=== PATIENT | female | born 1990 | race Two or more races ===

== ENCOUNTER 2020-04-16 04:11 | Emergency (ER) | payer MEDICAID, OTHER ==
[~2020-04-16] VITALS: Ht 177.8 cm; Wt 86.9 kg
[~2020-04-16 04:11] MED LIST: DOCU-131 PO; IBUP-1222 PO; OXYC1TAB14 PO; PREN1TAB60 PO
--- NOTE | 2020-04-16 04:32 | NUR ---
"I'VE BEEN THROWING UP A LOT AT WORK AND HAVE ABD PAIN" LMP 04/06/20. VOMITING X8 SINCE 1999. BILAT LOW QUAD ABD PAIN
[2020-04-16] MEDS ORDERED: MORPHINE SULFATE 4 MG/ML, 1ML ONE (04:58)
[2020-04-16] MEDS ORDERED: ONDANSETRON 2MG/ML, 2ML ONE (04:58)
[2020-04-16] MEDS ORDERED: FAMOTIDINE 20 MG/2 ML ONE (04:59)
[2020-04-16] MEDS ORDERED: ONDANSETRON 2MG/ML, 2ML IVPush ONE (05:00)
[2020-04-16] MEDS ORDERED: SODIUM CHLORIDE 0.9% 1,000ML IVBOLUS ONE (05:00)
[2020-04-16] MEDS ORDERED: FAMOTIDINE 20 MG/2 ML IV ONE (05:00)
[2020-04-16] MEDS ORDERED: MORPHINE SULFATE 4 MG/ML, 1ML IVPush PRN (05:00)
--- NOTE | 2020-04-16 05:17 | NUR ---
PIV PLACED MEDICATED FOR PAIN
[2020-04-16 05:20] LABS: BASOPHILS % (AUTO) 0 % (0-1); EOSINOPHILS % (AUTO) 1 % (1-7); LYMPHOCYTES % (AUTO) 15 % (22-44); MD NO; MEAN CORPUSCULAR HEMOGLOBIN 27.3 pg (27.0-34.8); MEAN CORPUSCULAR HGB CONC 33.5 g/dL (32.4-35.8); MEAN PLATELET VOLUME 8.8 fL (7.4-10.4); MONOCYTES % (AUTO) 8 % (2-9); NEUTROPHILS % (AUTO) 76 % (42-75); PLATELET COUNT 254 x10^3/uL (130-400); RED BLOOD COUNT 4.59 x10^6/uL (3.82-5.3); RED CELL DISTRIBUTION WIDTH 13.9 % (9.6-15.2)
[2020-04-16 05:33] LABS: CHLORIDE 107 mmol/L (98-107)
[2020-04-16 05:54] LABS: ALANINE AMINOTRANSFERASE 18 U/L (12-78); ALBUMIN 3.1 g/dL (3.4-5.0); ALKALINE PHOSPHATASE 49 U/L (45-117); ANION GAP 10 mmol/L (5-15); BILIRUBIN,TOTAL 0.2 mg/dL (0.2-1.0); CALCIUM 8.2 mg/dL (8.5-10.1); CREATININE 0.74 mg/dL (0.55-1.02); TOTAL PROTEIN 7.1 g/dL (6.4-8.2)
[2020-04-16 06:34] LABS: MICROSCOPIC AUTO
--- NOTE | 2020-04-16 06:41 | NUR ---
US IN PROGRESS
--- NOTE | 2020-04-16 07:00 | NUR ---
assumed care of pt. report from Myra ALEXANDER pt here for N/V and abd pain. pt has had an incidental finding. pt has been medicated. US currently in progress at bedside
--- NOTE | 2020-04-16 07:05 | NUR ---
IV fluid infusion completed prior to assumed care
--- NOTE | 2020-04-16 07:13 | NUR ---
bedside US continues
--- NOTE | 2020-04-16 07:45 | NUR ---
pt sitting up in position of comfort. pt has no c/o at this time
[2020-04-16 08:33] VITALS: BP 105/57
== END 2020-04-16 08:38 | disposition home or self-care (01) ==
LOC: ED 06:29
DX: O23.12 Infections of bladder in pregnancy, second trimester (principal); O26.892 Other specified pregnancy related conditions, second trimester; R11.2 Nausea with vomiting, unspecified; Z3A.16 16 weeks gestation of pregnancy
CPT/HCPCS: 76700; 76801; 80053; 81001; 83690; 84702; 85025; 87086; 96374; 96375; 99285; J2270; J2405; J7030; 36415; 84703

== ENCOUNTER 2020-09-21 05:49 | Inpatient (IN) | payer OTHER ==
[~2020-09-21] VITALS: Ht 177.8 cm; Wt 110.9 kg
[2020-09-21] MEDS ORDERED: OXYTOCIN 30U/ 0.9% NaCL 500ML 500 ML ONE (06:20)
[2020-09-21] MEDS ORDERED: SODIUM CITRATE/CITRIC ACID 15 ML UDC ONE ×2 (06:20→12:09)
[2020-09-21] MEDS ORDERED: NEWBORN KIT ONE (06:20)
[2020-09-21] MEDS ORDERED: SODIUM CITRATE/CITRIC ACID 30 ML UDC PO ONE ×2 (06:30→15:30)
[2020-09-21] MEDS ORDERED: LACTATED RINGERS 1,000 ML IVBOLUS ONE (06:30)
[2020-09-21] MEDS ORDERED: METOCLOPRAMIDE 5 MG/ML, 2ML IV ONE (06:30)
[2020-09-21 06:45] LABS: BASOPHILS % (AUTO) 0 % (0-1); EOSINOPHILS % (AUTO) 1 % (1-7); LYMPHOCYTES % (AUTO) 14 % (22-44); MEAN CORPUSCULAR HEMOGLOBIN 25.7 pg (27.0-34.8); MEAN CORPUSCULAR HGB CONC 32.7 g/dL (32.4-35.8); MEAN PLATELET VOLUME 8.8 fL (7.4-10.4); MONOCYTES % (AUTO) 6 % (2-9); NEUTROPHILS % (AUTO) 78 % (42-75); PLATELET COUNT 234 x10^3/uL (130-400); RED BLOOD COUNT 3.93 x10^6/uL (3.82-5.3); RED CELL DISTRIBUTION WIDTH 14.2 % (9.6-15.2)
[2020-09-21] MEDS ORDERED: FENTANYL PF 100 MCG/2ML ONE ×3 (07:18→15:25)
[2020-09-21 07:19] VITALS: BP 111/71
[2020-09-21] MEDS ORDERED: OXYTOCIN 10 UNITS/ML, 1ML ONE ×4 (07:21)
[2020-09-21] MEDS ORDERED: CEFAZOLIN 1,000 MG ONE ×4 (07:21→12:20)
[2020-09-21] MEDS ORDERED: KETOROLAC 30 MG/1 ML ONE (07:21)
[2020-09-21] MEDS ORDERED: EPHEDRINE 50 MG/ML, 1ML ONE (08:21)
[2020-09-21] MEDS ORDERED: PHENYLEPHRINE 10 MG/ML ONE (08:26)
[2020-09-21] MEDS ORDERED: SIMETHICONE 80 MG CHEW TAB PO PRN (08:30)
[2020-09-21] MEDS ORDERED: METHYLERGONOVINE 0.2 MG/ML IM PRN (08:30)
[2020-09-21] MEDS ORDERED: CARBOPROST TROMETHAMINE 250 MCG/ML, 1ML IM PRN (08:30)
[2020-09-21] MEDS ORDERED: DIPH,PERTUSS(ACELL),TET VAC/PF NC IM-VACC PRN (08:30)
[2020-09-21] MEDS ORDERED: ONDANSETRON 2MG/ML, 2ML IV PRN (08:30)
[2020-09-21] MEDS ORDERED: morphine SULFATE 10 MG/ML, 1ML IM PRN (08:30)
[2020-09-21] MEDS ORDERED: MISOPROSTOL 200 MCG TABLET PR PRN (08:30)
[2020-09-21] MEDS ORDERED: ACETAMINOPHEN 325 MG TABLET PO PRN ×2 (08:30)
[2020-09-21] MEDS: PRENATAL VIT/IRON/FA 1 EACH TABLET PO SCH (09:00)
[2020-09-21] MEDS ORDERED: ONDANSETRON 2MG/ML, 2ML IVPush PRN ×2 (09:30→15:30)
[2020-09-21] MEDS ORDERED: DIPHENHYDRAMINE 50 MG/ML, 1ML IVPush PRN ×2 (09:30→15:30)
[2020-09-21] MEDS ORDERED: FENTANYL PF 100 MCG/2ML IV PRN ×2 (09:30→15:30)
[2020-09-21] MEDS ORDERED: OXYcodone 5 MG/5 ML ORAL.SOL UDC PO PRN ×2 (09:30→15:30)
[2020-09-21] MEDS ORDERED: EPHEDRINE 50 MG/ML, 1ML IVPush PRN ×2 (09:30→15:30)
[2020-09-21] MEDS ORDERED: morphine SULFATE 10 MG/ML, 1ML IVPush PRN (09:30)
[2020-09-21] MEDS: OXYTOCIN 30U/ 0.9% NaCL 500ML 500 ML IV SCH ×2 (10:06→18:30)
[2020-09-21] MEDS: LACTATED RINGERS 1,000 ML IV SCH ×4 (10:06→18:30)
[2020-09-21] MEDS ORDERED: METOCLOPRAMIDE 5 MG/ML, 2ML ONE (12:09)
[2020-09-21 12:15] VITALS: BP 104/64
[2020-09-21] MEDS ORDERED: FENTANYL PF 250 MCG/5ML ONE (12:17)
[2020-09-21] MEDS ORDERED: ROCURONIUM 10MG/ML,5ML ONE (12:19)
[2020-09-21] MEDS ORDERED: SUCCINYLCHOLINE 20 MG/ML, 10ML ONE (12:19)
[2020-09-21] MEDS ORDERED: ETOMIDATE 20 MG/10 ML ONE (12:19)
[2020-09-21 12:30] VITALS: BP 100/58
[2020-09-21 12:35] VITALS: BP 100/58
[2020-09-21 12:40] LABS: BASOPHILS % (AUTO) 0 % (0-1); EOSINOPHILS % (AUTO) 0 % (1-7); LYMPHOCYTES % (AUTO) 8 % (22-44); MEAN CORPUSCULAR HGB CONC 32.8 g/dL (32.4-35.8); MEAN PLATELET VOLUME 8.8 fL (7.4-10.4); MONOCYTES % (AUTO) 4 % (2-9); NEUTROPHILS % (AUTO) 88 % (42-75); PLATELET COUNT 208 x10^3/uL (130-400); RED CELL DISTRIBUTION WIDTH 14.6 % (9.6-15.2)
[2020-09-21 12:51] LABS: D-DIMER (DIC) 3.05 ug/mlFEU (0.00-0.52); PROTIME 10.8 Seconds (9.6-11.5)
[2020-09-21] MEDS ORDERED: HYDROmorphone 2 MG/ML, 1ML ONE (13:32)
[2020-09-21] MEDS ORDERED: SUGAMMADEX 200 MG/2 ML IVPush ONE (14:09)
[2020-09-21 14:30] VITALS: BP 110/62
[2020-09-21] MEDS: KETOROLAC 30 MG/1 ML IV SCH ×2 (14:30→18:57)
[2020-09-21] MEDS ORDERED: METOCLOPRAMIDE 5 MG/ML, 2ML IVPush ONE (15:30)
[2020-09-21] MEDS ORDERED: HYDROmorphone 1 MG/ML, 1ML INJ IVPush PRN (15:30)
[2020-09-21 18:02] LABS: BASOPHILS % (AUTO) 1 % (0-1); EOSINOPHILS % (AUTO) 0 % (1-7); LYMPHOCYTES % (AUTO) 11 % (22-44); MEAN CORPUSCULAR HEMOGLOBIN 26.8 pg (27.0-34.8); MEAN CORPUSCULAR HGB CONC 33.4 g/dL (32.4-35.8); MEAN PLATELET VOLUME 8.5 fL (7.4-10.4); MONOCYTES % (AUTO) 4 % (2-9); NEUTROPHILS % (AUTO) 84 % (42-75); PLATELET COUNT 166 x10^3/uL (130-400); RED BLOOD COUNT 2.95 x10^6/uL (3.82-5.3); RED CELL DISTRIBUTION WIDTH 14.7 % (9.6-15.2)
[2020-09-21] MEDS: OXYcodone/APAP 5/325MG TABLET PO PRN (18:45)
[2020-09-21 19:30] VITALS: BP 142/75
[2020-09-22] VITALS (10 sets, daily range): BP systolic 80–99; BP diastolic 42–62
[2020-09-22] MEDS: KETOROLAC 30 MG/1 ML IV SCH ×3 (01:13→14:54)
[2020-09-22] MEDS: LACTATED RINGERS 1,000 ML IV SCH ×5 (01:13→16:30)
[2020-09-22] MEDS: OXYTOCIN 30U/ 0.9% NaCL 500ML 500 ML IV SCH ×2 (04:30→14:30)
[2020-09-22] MEDS: OXYcodone/APAP 5/325MG TABLET PO PRN ×3 (05:30→14:54)
[2020-09-22 06:01] LABS: BASOPHILS % (AUTO) 0 % (0-1); EOSINOPHILS % (AUTO) 1 % (1-7); LYMPHOCYTES % (AUTO) 10 % (22-44); MEAN CORPUSCULAR HEMOGLOBIN 26.8 pg (27.0-34.8); MEAN CORPUSCULAR HGB CONC 33.4 g/dL (32.4-35.8); MEAN PLATELET VOLUME 8.7 fL (7.4-10.4); MONOCYTES % (AUTO) 6 % (2-9); NEUTROPHILS % (AUTO) 83 % (42-75); PLATELET COUNT 159 x10^3/uL (130-400); RED BLOOD COUNT 2.59 x10^6/uL (3.82-5.3); RED CELL DISTRIBUTION WIDTH 14.8 % (9.6-15.2)
[2020-09-22] MEDS: PRENATAL VIT/IRON/FA 1 EACH TABLET PO SCH (09:00)
[2020-09-23] MEDS: OXYTOCIN 30U/ 0.9% NaCL 500ML 500 ML IV SCH (00:30)
[2020-09-23] MEDS: LACTATED RINGERS 1,000 ML IV SCH ×2 (00:30)
[2020-09-23] MEDS: OXYcodone/APAP 5/325MG TABLET PO PRN ×4 (05:20→23:51)
[2020-09-23 08:00] VITALS: BP 92/60
[2020-09-23] MEDS: DOCUSATE 100 MG CAPSULE PO PRN ×2 (10:24→21:15)
[2020-09-23] MEDS: PRENATAL VIT/IRON/FA 1 EACH TABLET PO SCH (10:24)
[2020-09-23 20:00] VITALS: BP 120/80
[2020-09-23] MEDS: IBUPROFEN 600 MG TABLET PO PRN (21:15)
[2020-09-24] MEDS ORDERED: POLYETHYLENE GLYCOL 17 GM PACKET PO ONE (07:30)
[2020-09-24 07:45] VITALS: BP 101/66
[2020-09-24] MEDS: OXYcodone/APAP 5/325MG TABLET PO PRN ×2 (07:47→17:30)
[2020-09-24] MEDS: PRENATAL VIT/IRON/FA 1 EACH TABLET PO SCH (07:59)
[2020-09-24] MEDS ORDERED: OXYC1TAB14 PO (09:22)
[2020-09-24] MEDS ORDERED: IBUP-1223 PO (09:23)
[2020-09-24] MEDS ORDERED: DOCU-131 PO (09:23)
[2020-09-24] MEDS ORDERED: FERR324T18 PO (09:24)
[2020-09-24] MEDS: IBUPROFEN 600 MG TABLET PO PRN (17:30)
== END 2020-09-24 18:15 | disposition home or self-care (01) | DRG 784 ==
LOC: LDIP 05:49 → 2NW 11:10 → LDIP 11:49 → 2NW 09-22 00:11
PROVIDERS: ADMIT Obstetrics & Gynecology Maternal & Fetal Medicine; ATTEND Obstetrics & Gynecology Maternal & Fetal Medicine
PROC: 0UB70ZZ Excision of Bilateral Fallopian Tubes, Open Approach (ICD-10-PCS; principal; 2020-09-21)
PROC: 10D00Z1 Extraction of Products of Conception, Low, Open Approach (ICD-10-PCS; 2020-09-21)
PROC: 0UT90ZL Resection of Uterus, Supracervical, Open Approach (ICD-10-PCS; 2020-09-21)
PROC: 30233K1 Transfusion of Nonautologous Frozen Plasma into Peripheral Vein, Percutaneous Approach (ICD-10-PCS; 2020-09-21)
PROC: 30233N1 Transfusion of Nonautologous Red Blood Cells into Peripheral Vein, Percutaneous Approach (ICD-10-PCS; 2020-09-21)
DX: O99.824 Streptococcus B carrier state complicating childbirth (principal); D62 Acute posthemorrhagic anemia; O72.1 Other immediate postpartum hemorrhage; O34.211 Maternal care for low transverse scar from previous cesarean delivery; O90.81 Anemia of the puerperium; Z30.2 Encounter for sterilization; Z37.0 Single live birth; Z3A.39 39 weeks gestation of pregnancy; Z20.822 Contact with and (suspected) exposure to COVID-19
CPT/HCPCS: 36415; 85014; 85018; 85025; 85049; 85379; 85384; 85610; 85730; 86592; 86850; 86900; 86923; 88302; 88307; G0378; J0690; J1170; J1885; J3010; U0005; J0330; J2210; J2370; J2590; J2765; J7120; P9016; P9017; U0003